=== PATIENT | female | born 1980 | race Hispanic/Latino ===

== ENCOUNTER 2022-06-14 22:59 | Emergency (ER) | payer BC ==
--- OUTSIDE RECORDS SUMMARY | 2022-06-14 23:03 | XMS REPORT | Continuity of Care Document ---
:1980 Author Organization [facility] t Address [address] [place] [address] Care Team Providers Name Role Phone Jennifer Aguilar Attending Clinician Unavailable [place] Attending Clinician Unavailable Jennifer Aguilar Admitting Clinician Unavailable [place] Admitting Clinician Unavailable Payers Payer Name Policy Type Policy Number Effective Date Expiration Date S fred[place] [id number] 2019 00:00:00 [place] Problems This patient has no known problems. Allergies, Adverse Reactions, Alerts Allergy Allergy Status Severity Reaction(s) Onset Inactive Treating Comm ents Source Name Type Date Date Clinician levoflox DA Active SV 2019-0 [facility] [place] levoflox DA Active SV LIP 2019-0 [facility], 9-30 [facility] [place] Medications This patient has no known medications. Procedures Procedure Date / Time Performed Performing Clinician José emery [id number] 2020-08-30 00:00:00 [facility] [id number] 2020-08-30 00:00:00 [facility] [id number] 2020-08-30 00:00:00 LEESH.01 [facility] [id number] 2020-08-30 00:00:00 LEESH.01 [facility] [id number] 2020-08-29 00:00:00 SMIIV [facility] [id number] 2020-08-29 00:00:00 SMIIV [facility] Encounters Start End Encounter Admission Attending Care Care Encounter Source Date/Time Date/Time Type Type Clinicians Facility Department ID 2021-03-30 Outpatient [facility] [id number] [facility] 19:02:18 [id number] [facility] 2020-09-02 Inpatient [facility] [id number] [facility] 07:24:29 er, Jennifer 97 [facility] [place] 2020-07-05 Inpatient [facility] DIAB [id number] [facility] 06:39:00 er, Jennifer 11 [facility] [place] 2020-03-16 Inpatient [facility] STEVEN [id number] [facility] 14:45:00 90 [facility] [place] 2020-10-10 2020-10-10 Outpatient [facility]_ PRIV PRIV [id number] [facility] 09:44:00 09:44:00 Sonu [id number] [facility] 2020-10-09 2020-10-09 Outpatient [facility]_ PRIV PRIV [id number] [facility] 01:08:00 01:08:00 Sonu [id number] [facility] 2020-10-07 2020-10-07 Outpatient [facility]_ PRIV PRIV [id number] [facility] 03:47:00 03:47:[id number] [facility] Results Test Description Test Time Test Comments Results Result Comments Source HGB HCT 2020-08-31 09:33:00 Test Item Value Reference Range Interpretation Comme nts HEMOGLOBIN (test code = HGB) 8.9 g/dL 10.1-13.8 L HEMATOCRIT (test code = HCT) 26.7 % 32.5-41.8 L HGB [id number] 14:06:00 Test Item Value Reference Range Interpretation Comments HEMOGLOBIN (test code = HGB) 9.3 g/dL 10.1-13.8 L HEMATOCRIT (test code = HCT) 28.1 % 32.5-41.8 L AG HEPATITIS B [id number] 12:00:00 Test Item Value Reference Range Interpretation Comments AG HEPATITIS B SURFACE (test code NONREACTIVE NONREACTIVE = HBSAG) IS CONSENT FORM SIGNED FOR HIV TESTING? YAB HEPATITIS C [id number] 12:00:00 Test Item Value Reference Range Interpretation Comments AB HEPATITIS C (test code = NONREACTIVE NONREACTIVE HCVAB) SIGNAL TO CUTOFF (test code = 0.02 <0.80 N CUTOFF) IS CONSENT FORM SIGNED FOR HIV TESTING? YAB [id number] 12:00:00 Test Item Value Reference Range Interpretation Comments AB TREPONEMA (test code = TREPAB) NONREACTIVE NONREACTIVE IS CONSENT FORM SIGNED FOR HIV TESTING? YAB HIV 1 12:00:00 Test Item Value Reference Range Interpretation Comments AB HIV 1 2 (test NONREACTIVE NONREACTIVE [facility] = [id number]) 4th Gen HIV Ag/Ab Combo Screen IS CONSENT FORM SIGNED FOR HIV TESTING? YAG HEPATITIS B [id number] 11:59:00 Test Item Value Reference Range Interpretation Comments AG HEPATITIS B SURFACE (test code NONREACTIVE NONREACTIVE = HBSAG) IS CONSENT FORM SIGNED FOR HIV TESTING? YAB HEPATITIS C [id number] 11:59:00 Test Item Value Reference Range Interpretation Comments AB HEPATITIS C (test code = NONREACTIVE NONREACTIVE HCVAB) SIGNAL TO CUTOFF (test code = 0.02 <0.80 N CUTOFF) IS CONSENT FORM SIGNED FOR HIV TESTING? YAB [id number] 11:59:00 Test Item Value Reference Range Interpretation Comments AB TREPONEMA (test code = TREPAB) NONREACTIVE NONREACTIVE IS CONSENT FORM SIGNED FOR HIV TESTING? YAB HIV 1 11:59:00 Test Item Value Reference Range Interpretation Comments AB HIV 1 2 (test code = [id number]) NONREACTIVE IS CONSENT FORM SIGNED FOR HIV TESTING? YAG HEPATITIS B [id number] 11:32:00 Test Item Value Reference Range Interpretation Comments AG HEPATITIS B SURFACE (test code NONREACTIVE NONREACTIVE = HBSAG) IS CONSENT FORM SIGNED FOR HIV TESTING? YAB HEPATITIS C [id number] 11:32:00 Test Item Value Reference Range Interpretation Comments AB HEPATITIS C (test code = HCVAB) NONREACTIVE SIGNAL TO CUTOFF (test code = CUTOFF) <0.80 IS CONSENT FORM SIGNED FOR HIV TESTING? YAB [id number] 11:32:00 Test Item Value Reference Range Interpretation Comments AB TREPONEMA (test code = TREPAB) NONREACTIVE NONREACTIVE IS CONSENT FORM SIGNED FOR HIV TESTING? YAB HIV 1 11:32:00 Test Item Value Reference Range Interpretation Comments AB HIV 1 2 (test code = [id number]) NONREACTIVE IS CONSENT FORM SIGNED FOR HIV TESTING? YAG HEPATITIS B [id number] 11:31:00 Test Item Value Reference Range Interpretation Comments AG HEPATITIS B SURFACE (test code = NONREACTIVE HBSAG) IS CONSENT FORM SIGNED FOR HIV TESTING? YAB HEPATITIS C [id number] 11:31:00 Test Item Value Reference Range Interpretation Comments AB HEPATITIS C (test code = HCVAB) NONREACTIVE SIGNAL TO CUTOFF (test code = CUTOFF) <0.80 IS CONSENT FORM SIGNED FOR HIV TESTING? YAB [id number] 11:31:00 Test Item Value Reference Range Interpretation Comments AB TREPONEMA (test code = TREPAB) NONREACTIVE NONREACTIVE IS CONSENT FORM SIGNED FOR HIV TESTING? YAB HIV 1 11:31:00 Test Item Value Reference Range Interpretation Comments AB HIV 1 2 (test code = [id number]) NONREACTIVE IS CONSENT FORM SIGNED FOR HIV TESTING? YCBC W/AUTO [id number] 10:55:00 Test Item Value Reference Range Interpretation Comments WHITE BLOOD CELL (test code = WBC) 8.6 K/mm3 6.5-12.3 N RED BLOOD CELL (test code = RBC) 3.76 M/mm3 3.51-4.69 N HEMOGLOBIN (test code = HGB) 11.4 g/dL 10.1-13.8 N HEMATOCRIT (test code = HCT) 34.1 % 32.5-41.8 N MEAN CELL VOLUME (test code = MCV) 90.7 fL 84.6-96.6 N MEAN CELL HGB (test code = MCH) 30.3 pg 27.3-33.9 N MEAN CELL HGB CONCETRATION (test 33.4 gm/dL 32.0-34.2 N code = MCHC) RED CELL DISTRIBUTION WIDTH (test 13.2 % 12.2-16.3 N code = RDW) PLATELET COUNT (test code = PLT) 228 K/mm3 134-363 N MEAN PLATELET VOLUME (test code = 10.4 fL 9.2-12.7 N MPV) NEUTROPHIL % (test code = NT%) 65.1 % 57.9-77.3 N LYMPHOCYTE % (test code = LY%) 26.3 % 14.5-29.7 N MONOCYTE % (test code = MO%) 5.7 % 3.6-10.2 N EOSINOPHIL % (test code = EO%) 1.6 % 0.0-3.0 N BASOPHIL % (test code = BA%) 0.7 % 0.1-0.9 N NEUTROPHIL # (test code = NT#) 5.6 K/mm3 LYMPHOCYTE # (test code = LY#) 2.3 K/mm3 MONOCYTE # (test code = MO#) 0.5 K/mm3 EOSINOPHIL # (test code = EO#) 0.14 K/mm3 BASOPHIL # (test code = BA#) 0.1 K/mm3 RBC MORPHOLOGY REQUIRED (test code NORMAL NORMAL = RBCM) PLATELET MORPHOLOGY REQUIRED (test NORMAL NORMAL code = PLTMR) COVID 19 Asymptomatic IH [id number] 18:49:00 Test Item Value Reference Range Interpretation Comments COVID 19 NEGATIVE NEGATIVE This test has b een Asymptomatic IH AG authorize d only for the (test code = detection ofpro teins from COVNONPUIAG) SARS-CoV-2, not for any other viruses orpathogens. Ne gative results should be treated as presumptive andconfirmed wi th a molecular assay , if necessary for patientmanageme nt. Negative result s do not rule out COVID- 19 andshould not b e used as the sole basis for treatment orpat ient management deci sions, including infec tion controldecision s. Negative result s should be considered i n thecontext of a patient's recent exposure s, history and thepresence of clinical signs and symptoms consis tent withCOVID-19. T his test has not been FD A cleared or approved; th e test hasbeen authori zed by FDA under an Emerge ncy Use Authorization(E UA) for use by laborato michael certified under the CLIA thatmeet the re quirements to perform mode rate, high or waivedcomple xity tests. This ashley t is authorized for use at thePoint of Car e (POC), i.e., in patien t care settingsoperati ng under a CLIA Certificat e of Waiver, Certifi rosmery ofCompliance, o r Certificate of Accreditation. This test is only authori zed for the duration of thedeclaration that circumstances e xist justifying theauthorizatio n of emergency use o f in vitro diagnostic test sfor detection and/o r diagnosis of CO VID-19 under Vzaylzl80 4(b)(1) of the Act, 21 U.S .C. 360bbb-3(b)(1), unless theauthorizatio n is terminated or r evoked sooner. - US [id number] 17:30:00 Patient Name: ELLIOTT LIGHT Unit No: [id number] EXAMS: CPT CODE: [id number] [place] LTD [id number] PROCEDURE: LIMITED ULTRASOUND INDICATION: 15 weeks with pelvic pain and low back pain. COMPARISON: None. TRANSABDOMINAL SCAN: Single live intrauterine is identified currently in cephalic position with heart tones of 159 bpm. Posterior grade 1 placenta is seen without evidence for previa. Cervix measures 3.5 cm in length. Maternal right ovary appears normal measuring 3.9 x 2.1 x 3.8 cm with vascular flow documented. The left ovary is not visualized. No adnexal mass visualized. No free pelvic fluid. TRANSVAGINAL SCAN: Not performed. IMPRESSION: Single viable intrauterine . SL: SG-H at 1730 Reported and signed by: Quentin Henley MD CC: Antonio Mcduffie MD Technologist: Farzaneh Desir RDMS Probe: Trnscrbd D/ (1730) [email or web address] Orig Print D/T: S: 03/16/2020 (1733) [facility] NAME: DAVI LIGHTEY Radiology Department PHYS: Antonio Franco [address] : 1980 AGE: 39 SEX: F [place], [place] [address] LOC: [facility] PHONE #: [phone] EXAM DATE: 03/16/2020 STATUS: REG ER FAX #: [phone] RAD NO: Page 1 Signed ReportPatient Name: ELLIOTT LIGHT Unit No: [id number] EXAMS: CPT CODE: [id number] LTD [id number] (Continued) [facility] NAME: ELLIOTT LIGHT Radiology Department PHYS: Antonio Jj [address] : 1980 AGE: 39 SEX: F [place], [place] [address] LOC: [facility] PHONE #: [phone] EXAM DATE: 03/16/2020 STATUS: REG ER FAX #: [phone] RAD NO: Page 2 Signed ReportUA RFLX MICR CULT IF [id number] 15:37:00 Test Item Value Reference Range Interpretation Comments UA COLOR (test code = COLU) YELLOW YELLOW UA APPEARANCE (test code = Slightly-Cloudy CLEAR APPU) UA GLUCOSE DIPSTICK (test NEGATIVE NEG code = DGLUU) UA BILIRUBIN DIPSTICK (test NEGATIVE NEG code = BILU) UA KETONE DIPSTICK (test code NEGATIVE NEG = KETU) UA SPECIFIC GRAVITY (test 1.030 1.001-1.035 N code = SGU) UA BLOOD DIPSTICK (test code NEG NEG = JERONIMO) UA PH DIPSTICK (test code = 6.0 5-9 HOANG) UA PROTEIN DIPSTICK (test NEGATIVE NEG code = PROU) UA UROBILINIOGEN DIPSTICK 2.0 mg/dL NEG (test code = URO) UA NITRITE DIPSTICK (test NEG NEG code = KYLEIGH) UA LEUKOCYTE ESTERASE 1+ NEG A DIPSTICK (test code = LEUU) UA WBC (test code = WBCU) 6-10 #/hpf NONE SEEN A UA RBC (test code = RBCU) 0-2 #/hpf NONE SEEN UA EPITHELIAL CELLS (test MODERATE #/HPF RARE-FEW A code = EPIU) UA BACTERIA (test code = RARE /HPF RARE-FEW BACU) UA CALCIUM OXALATE CRYSTALS 3-5 #/LPF (test code = CAOXU) UA MUCUS (test code = MUCU) 2+ NONE SEEN Indication for culture: Suprapubic PainSpecimen Description: CLEAN CATCH
[2022-06-14] MEDS ORDERED: HYDROCODONE/APAP 10/325 TAB ONE (23:56)
[2022-06-15 00:35] LABS: Urine Blood Negative (Negative); Urine Glucose Negative (Negative); Urine Protein Negative (Negative); Urine Specific Gravity 1.025 (1.005-1.030); Urine pH 5.5 (5.0-7.0)
[2022-06-15 00:50] LABS: Urine Specific Gravity/Preg 1.025 (1.005-1.030)
--- NOTE | 2022-06-15 01:48 | ER ---
Nurse's Notes [facility] Name: Shelly Bassett Age: 42 yrs Sex: Female : 1980 Arrival Date: 06/14/2022 Time: 23:06 Bed 4 Private MD: Diagnosis: Unspecified injury of head, initial encounter;Gluteal hematoma Presentation: 06/14 23:31 Chief complaint: Patient states: C/o left gluteal, left lower back, and left elbow pain ll3 after slipping down 5 stairs, pt said the steps were wet because it was raining, large hematoma noted to left gluteus, states hit back of head, denies LOC, does not take any blood thinners at home, c/o stiff neck. Coronavirus screen: Vaccine status: Patient reports being unvaccinated. At this time, the client does not indicate any symptoms associated with coronavirus-19. Ebola Screen: No symptoms or risks identified at this time. Initial Sepsis Screen: Does the patient meet any 2 criteria? No. Patient's initial sepsis screen is negative. Does the patient have a suspected source of infection? No. Patient's initial sepsis screen is negative. Risk Assessment: Do you want to hurt yourself or someone else? Patient reports no desire to harm self or others. Onset of symptoms was June 14, 2022. 23:31 Method Of Arrival: Ambulatory ll3 23:31 Acuity: CARLEE 3 ll3 23:45 Care prior to arrival: None. Mechanism of Injury: Fall down 5 steps. Trauma event as6 details: Injury occurred in the [facility], Injury occurred: at home. Injury occurred: June 14, 2022. 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 - Social history:: Smoking status: Patient denies any tobacco usage or history of. - Immunization history: Last tetanus immunization: unknown. Screenin:27 [facility] ED Fall Risk Assessment (Adult) History of falling in the last 3 months, ha1 including since admission Yes- single mechanical fall (1 pt) Confusion or Disorientation No (0 pts) Intoxicated or Sedated No (0 pts) Impaired Gait No (0 pts) Mobility Assist Device Used No (0 pt) Altered Elimination No (0 pt) Score/Fall Risk Level 0 - 2 = Low Risk Oriented to surroundings, Maintained a safe environment, Educated pt \T\ family on fall prevention, incl call for assistance when getting out of bed, Hourly rounding (assess needs \T\ fall precautionary measures) done. 06/15 00:04 Abuse screen: Denies threats or abuse. Denies injuries from another. Nutritional ha1 screening: No deficits noted. Tuberculosis screening: No symptoms or risk factors identified. Primary Survey: 06/14 23:17 NO uncontrolled hemorrhage observed. ha1 23:17 A: The client is alert. Breathing/Chest: Spontaneous respiratory effort, equal ha1 unlabored respirations, breath sounds clear bilaterally, regular pattern, symmetrical chest rise and fall. Circulation: No external hemorrhage present. Regular and strong central pulse, skin warm/dry/normal color. Disability Pupils are equal, round, reactive to light and accommodation. Client is alert. Exposure/Environment: All clothing and personal items were removed. Forensic evidence collection is not deemed to be indicated at this time. Items placed in patient belonging bag. Reassessment Breathing: Spontaneous respiratory effort, equal unlabored respirations, breath sounds clear bilaterally, regular pattern with symmetrical chest rise and fall. Respiratory effort Spontaneous Breath sounds Clear Respiratory pattern Regular Chest inspection Symmetrical Circulation: No external hemorrhage noted. Regular and strong central pulse, skin warm/dry/normal color. Disability: Pupils Pupils are equal, round, reactive to light and accomodation. Alert. Assessment: 23:18 General: Appears uncomfortable, Behavior is calm, cooperative. Pain: Complains of pain ha1 in left lower back and left elbow Pain does not radiate. Pain currently is 9 out of 10 on a pain scale. Is continuous. Neuro: Level of Consciousness is awake, alert, obeys commands, Oriented to person, place, time, situation. Cardiovascular: Patient's skin is warm and dry. Respiratory: Airway is patent Trachea midline Respiratory effort is even, unlabored, Respiratory pattern is regular, symmetrical. GI: Abdomen is non-distended, obese. : No signs and/or symptoms were reported regarding the genitourinary system. EENT: No deficits noted. No signs and/or symptoms were reported regarding the EENT system. Derm: Skin is pink, warm \T\ dry. Musculoskeletal: Circulation, motion, and sensation intact. 06/15 00:44 Reassessment: Patient appears in no apparent distress at this time. Patient and/or as6 family updated on plan of care and expected duration. Pain level reassessed. Patient is alert, oriented x 3, equal unlabored respirations, skin warm/dry/pink. Patient states symptoms have improved. Vital Signs: 06/14 23:18 BP 130 / 91; Pulse 80; Resp 18 S; Pulse Ox 100% on R/A; ha1 23:31 BP 143 / 97; Pulse 83; Resp 17; Temp 98.2(O); Pulse Ox 98% on R/A; Weight 103.42 kg ll3 (R); Height 5 ft. 7 in. (170.18 cm); Pain 10/10; 06/15 00:17 BP 132 / 70; Pulse 75; Resp 17 S; Pulse Ox 99% on R/A; ha1 01:15 BP 119 / 66; Pulse 70; Resp 16 S; Pulse Ox 99% on R/A; ha1 06/14 23:31 Body Mass Index 35.71 (103.42 kg, 170.18 cm) ll3 [place] Coma Score: 06/14 23:45 Eye Response: spontaneous(4). Verbal Response: oriented(5). Motor Response: obeys as6 commands(6). Total: 15. Trauma Score (Adult): 23:45 Eye Response: spontaneous(1); Verbal Response: oriented(1); Motor Response: obeys as6 commands(2); Systolic BP: > 89 mm Hg(4); Respiratory Rate: 10 to 29 per min(4); Casey Score: 15; Trauma Score: 12 ED Course: 23:06 Patient arrived in ED. es 23:17 Patient has correct armband on for positive identification. Placed in gown. Bed in low ha1 position. Call light in reach. Side rails up X 1. Adult w/ patient. 23:17 Thermoregulation: warm blanket given to patient. ha1 23:17 Patient maintains SpO2 saturation greater than 95% on room air. ha1 23:21 Tyler Chawla, RN is Primary Nurse. as6 23:23 Caden Forrester PA is PHCP. [facility] 23:23 Higinio Ashby MD is Attending Physician. [facility] 23:38 Triage completed. ll3 23:40 Arm band placed on Patient placed in an exam room, on a stretcher, on pulse oximetry. ll3 06/15 01:04 CT Head C Spine In Process Unspecified. EDMS 01:04 CT Stone Protocol In Process Unspecified. EDMS 02:01 No provider procedures requiring assistance completed. Patient did not have IV access ha1 during this emergency room visit. Administered Medications: 06/14 23:57 Drug: [place] (HYDROcodone-acetaminophen) 10 mg-325 mg 1 tabs Route: PO; ha1 06/15 00:25 Follow up: Response: No adverse reaction; Pain is decreased; RASS: Alert and Calm (0) ha1 Medication: 02:05 VIS not applicable for this client. ha1 Outcome: 06/14 23:27 Patient's length of stay was not longer than 2 hours. ha1 06/15 01:47 Discharge ordered by . [facility] 02:01 Discharged to home ambulatory, with family. ha1 02:01 Condition: stable 02:01 Discharge instructions given to patient, family, Instructed on discharge instructions, follow up and referral plans. medication usage, Demonstrated understanding of instructions, follow-up care, medications, Prescriptions given X 2. 02:06 Patient left the ED. ha1 Signatures: Dispatcher [employer] EDMS Caden Forrester PA PA jmm Salyer, Edna es Slawson, Ashby, RN RN as6 Dimitry Chakraborty RN RN ll3 Susan Lindo RN RN ha1
--- NOTE | 2022-06-15 01:48 | EDPHYS ---
Physician Documentation [facility] Name: Shelly Bassett Age: 42 yrs Sex: Female : 1980 Arrival Date: 06/14/2022 Time: 23:06 Bed 4 Private MD: ED Physician Higinio Ashby HPI: 06/14 23:38 This 42 yrs old Female presents to ER via Ambulatory with complaints of Fall jmm Injury. 23:38 Details of fall: The patient fell from an upright position. 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 - Social history:: Smoking status: Patient denies any tobacco usage or history of. - Immunization history: Last tetanus immunization: unknown. Vital Signs: 23:18 BP 130 / 91; Pulse 80; Resp 18 S; Pulse Ox 100% on R/A; ha1 23:31 BP 143 / 97; Pulse 83; Resp 17; Temp 98.2(O); Pulse Ox 98% on R/A; Weight 103.42 kg ll3 (R); Height 5 ft. 7 in. (170.18 cm); Pain 10/10; 06/15 00:17 BP 132 / 70; Pulse 75; Resp 17 S; Pulse Ox 99% on R/A; ha1 01:15 BP 119 / 66; Pulse 70; Resp 16 S; Pulse Ox 99% on R/A; ha1 06/14 23:31 Body Mass Index 35.71 (103.42 kg, 170.18 cm) ll3 Casey Coma Score: 06/14 23:45 Eye Response: spontaneous(4). Verbal Response: oriented(5). Motor Response: obeys as6 commands(6). Total: 15. Trauma Score (Adult): 23:45 Eye Response: spontaneous(1); Verbal Response: oriented(1); Motor Response: obeys as6 commands(2); Systolic BP: > 89 mm Hg(4); Respiratory Rate: 10 to 29 per min(4); Casey Score: 15; Trauma Score: 12 MDM: 23:28 Patient medically screened. [facility] 06/15 01:45 Data reviewed: vital signs, nurses notes. Counseling: I had a detailed discussion with [facility] the patient and/or guardian regarding: the historical points, exam findings, and any diagnostic results supporting the discharge/admit diagnosis, lab results, radiology results, the need for outpatient follow up, to return to the emergency department if symptoms worsen or persist or if there are any questions or concerns that arise at home. 06/15 00:34 Order name: Urine --Ancillary (enter results); Complete Time: 00:51 wm 06/15 00:35 Order name: Urine Dipstick-Ancillary; Complete Time: 00:37 EDMS 06/14 23:30 Order name: CT Head C Spine [facility] 06/14 23:30 Order name: CT Stone Protocol [facility] Administered Medications: 06/14 23:57 Drug: [place] (HYDROcodone-acetaminophen) 10 mg-325 mg 1 tabs Route: PO; ha1 06/15 00:25 Follow up: Response: No adverse reaction; Pain is decreased; RASS: Alert and Calm (0) ha1 Disposition Summary: 06/15/22 01:47 Discharge Ordered Location: Home [facility] Condition: Stable [facility] Diagnosis - Unspecified injury of head, initial encounter [facility] - Gluteal hematoma [facility] Followup: [facility] - With: Private Physician - When: 2 - 3 days - Reason: Recheck today's complaints, Continuance of care, Re-evaluation by your physician Discharge Instructions: - Discharge Summary Sheet [facility] - Head Injury, Adult [facility] - Hematoma [facility] Forms: - Medication Reconciliation Form [facility] - Thank You Letter [facility] - Antibiotic Education [facility] - Prescription Opioid Use [facility] Prescriptions: - Ultracet 37.5-325 mg Oral Tablet - take 1 tablet by ORAL route every 6 hours - for up to 5 days; do not exceed 8 jmm tablets per day.; 12 tablet; Refills: 0, Product Selection Permitted - orphenadrine citrate 100 mg Oral Tablet Sustained Release - take 1 tablet by ORAL route 2 times per day As needed; 20 tablet; Refills: 0, [facility] Product Selection Permitted Signatures: Dispatcher [employer] EDCaden Goodwin PA PA jmm Loubet, Lynsea RN RN ll3 Susan Lindo, RN RN ha1
[2022-06-15 02:11] VITALS: TEMP 98.2
[2022-06-15 02:12] VITALS: O2SAT 99
[2022-06-15 02:14] VITALS: BP 119/66
--- NOTE | 2022-06-15 15:45 | RAD REPORT ---
EXAM DESCRIPTION: CT - CTHCSPWOC - 06/15/2022 2:41 am CLINICAL HISTORY: The patient is 42 years old and is Female; fall, head injury TECHNIQUE: Axial computed tomography images of the head/brain and cervical spine without intravenous contrast. Sagittal and coronal reformatted images were created and reviewed. This CT exam was pe rformed using one or more of the following dose reduction techniques: automated exposure control, a djustment of the mA and/or kV according to patient size, and/or use of iterative reconstruction techn ique. COMPARISON: No relevant prior studies available. FINDINGS: Brain: Unremarkable. No hemorrhage. No significant white matter disease. No edema. Ventricles: Unremarkable. No ventriculomegaly. Skull: No acute fracture. Sinuses: Sphenoid sinus mucosal thickening. Left maxillary sinus mucosal thickening. Mastoid air cells: Unremarkable as visualized. No mastoid effusion. Vertebrae: Unremarkable. No acute fracture. Normal alignment. Discs/spinal canal/neural foramina: Disc space narrowing with degenerative end plate changes at C6-C7 and C7-T1. Moderate left neural foraminal narrowing at C2-3. Soft tissues: Unremarkable. IMPRESSION: No acute intracranial abnormality. No acute findings in the cervical spine. Electronically signed by: Kuldip Allred MD 06/15/2022 1:23 AM TRIMMER BUFFING WHEEL Due to temporary technical issues with the PACS/Fluency reporting system, reports are being signed by the in house radiologists without review as a courtesy to insure prompt reporting. The interpreting radiologist is fully responsible for the content of the report.
--- NOTE | 2022-06-15 16:41 | RAD REPORT ---
EXAM DESCRIPTION: CT - Stone Protocol - 06/15/2022 2:42 am CLINICAL HISTORY: Fall, low back pain, left hip pain TECHNIQUE: Axial computed tomography images of the abdomen and pelvis without intravenous contrast. Sagittal and coronal reformatted images were created and reviewed. This CT exam was performed usi ng one or more of the following dose reduction techniques: automated exposure control, adjustment o f the mA and/or kV according to patient size, and/or use of iterative reconstruction technique. COMPARISON: No relevant prior studies available. FINDINGS: Lung bases: Unremarkable. No mass. No consolidation. Mediastinum: Small hiatal hernia. ABDOMEN: Liver: Unremarkable. Gallbladder and bile ducts: Tiny gallstones within a contracted gallbladder. No ductal dilation. Pancreas: Unremarkable. No ductal dilation. Spleen: Unremarkable. No splenomegaly. Adrenals: Unremarkable. No mass. Kidneys and ureters: 4.4 cm partially exophytic cyst at the anterior mid pole of the left kidney. No follow-up imaging is necessary. No calculi. No hydronephrosis. Stomach and bowel: Prior gastric sleeve. Moderate stool. No bowel obstruction. No appreciable mucosal thickening. PELVIS: Appendix: Normal caliber appendix. No findings to suggest acute appendicitis. Bladder: Unremarkable. No stones. Reproductive: Unremarkable as visualized. ABDOMEN and PELVIS: Intraperitoneal space: Unremarkable. No free air. No significant fluid collection. Bones/joints: Multilevel spondylosis most pronounced at the lumbosacral junction. 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 No ac sandor fracture. No dislocation. Soft tissues: Small to moderate fat-containing umbilical hernia. Right gluteal subcutaneous hemor rhagic contusion measuring approximately 11.9 x 1.5 x 10.1 cm. Vasculature: Unremarkable. No abdominal aortic aneurysm. Lymph nodes: Unremarkable. No enlarged lymph nodes. IMPRESSION: 1. Right gluteal subcutaneous hemorrhagic contusion measuring approximately 11.9 x 1.5 x 10.1 cm. No acute fracture. 2. Allowing for unenhanced technique, no evidence for hollow or solid organ injury. 3. Other findings as above. Electronically signed by: Ori Augustine MD 06/15/2022 1:28 AM DERRICK MAN Due to temporary technical issues with the PACS/Fluency reporting system, reports are being signed by the in house radiologists without review as a courtesy to insure prompt reporting. The interpreting radiologist is fully responsible for the content of the report.
== END 2022-06-15 02:06 | disposition home or self-care (01) ==
LOC: ER 22:59
DX: S09.90XA Unspecified injury of head, initial encounter (principal); S30.0XXA Contusion of lower back and pelvis, initial encounter; Z88.1 Allergy status to other antibiotic agents
CPT/HCPCS: 70450; 72125; 74176; 76377; 81003; 81025; 99284

== ENCOUNTER 2022-08-06 06:17 | Day surgery (SDC) | payer BC ==
[2022-08-06 07:11] LABS: Potassium 3.9 mmol/L (3.5-5.1)
[2022-08-06 07:23] LABS: Absolute Lymphocytes (CBC) 2.2 K/uL (0.7-4.9); Hematocrit 31.9 % (36.0-45.0); Lymphocytes % 26.9 % (15.3-44.8); MCV 77.7 fL (80-100); MPV 7.3 fL (7.6-11.3); RBC Red Blood Cell Count 4.11 M/uL (3.86-4.86)
[2022-08-06] MEDS ORDERED: NA CHLORIDE 0.9% 1,000 ML ONE (07:31)
[2022-08-06] MEDS ORDERED: CELECOXIB 100 MG CAPSULE ONE (07:46)
[2022-08-06] MEDS ORDERED: ACETAMINOPHEN 500 MG TAB ONE (07:46)
[2022-08-06] MEDS ORDERED: CEFAZOLIN SODIUM 1 GM/VIAL ONE (08:42)
[2022-08-06 08:54] LABS: Urine Specific Gravity/Preg 1.025 (1.005-1.030)
[2022-08-06] MEDS ORDERED: BUPIVACAINE 0.5% PF 10 ML VIAL ONE (09:07)
[2022-08-06] MEDS ORDERED: FENTANYL CITR 100 MCG/2 ML ONE (09:13)
[2022-08-06] MEDS ORDERED: propofoL 200 MG/20 ML VIAL IV ONE (09:14)
[2022-08-06] MEDS ORDERED: MIDAZOLAM HCL 2 MG/2 ML INJ ONE (09:14)
[2022-08-06] MEDS ORDERED: LIDOCAINE 2% MPF 5 ML VIAL ONE (09:15)
[2022-08-06] MEDS ORDERED: ONDANSETRON 4 MG/2 ML VIAL ONE (09:15)
--- NOTE | 2022-08-06 09:50 | P.BOP ---
Preoperative diagnosis: tender left buttock subQ mass /infected hematoma Postoperative diagnosis: same Primary procedure: Wound exploration with drainage infected complex hematoma [id number] Estimated blood loss: minimal, clotted blood remove Specimen: culture Findings: as above Anesthesia: General Drain(s): JADON drain Transferred to: Recovery Room Condition: Good
--- NOTE | 2022-08-06 12:35 | EKG ---
Test Date: 2022-08-06 Test Time: 07:08:01 Senior Network Administrator: YAYA MEASUREMENT RESULTS: Intervals: Rate: 78 RI: 154 QRSD: 74 QT: 376 QTc: 428 [place]: P: 26 RI: 154 QRS: 44 T: 37 INTERPRETIVE STATEMENTS: Normal sinus rhythm with sinus arrhythmia Normal ECG No previous ECG available for comparison Electronically Signed On 08-06-22 12:34:31 PERINATAL INSTRUCTOR by Akshat Zamudio
[2022-08-06 12:43] VITALS: BP 113/73; TEMP 96.9; O2SAT 99
--- NOTE | 2022-08-06 15:04 | OP ---
Date of Procedure: 08/06/2022 Surgeon: Primo Perez MD Preoperative Diagnosis: Tender left buttock subcutaneous mass with infected hematoma. Postoperative Diagnosis: Tender left buttock subcutaneous mass with infected hematoma. Procedure: Wound exploration with drainage of infected complex hematoma, 15 x 15 x 4 cm. Estimated Blood Loss: Minimal. Several blood clots removed. There is also yellow discoloration wit h blood fluid mixed. Specimen: Culture. Findings: Patient has this complex hematoma. We did an incision on that area. We explored the cavi ty and removed the loculations with the help of the saline. No active bleeding at this moment. Due to the nature of the fluid, we cultured the area to looking for and trying to identify bacteria. Are a was irrigated. At this moment, I made a counter incision at the bottom of this area and put a JADON d rain to that region to allow us to drain the area for the next several days, and the local anesthesia was applied to both places and then the skin was approximated with 3-0 chromic. The JADON drain was se cured in place with the 3-0 nylon. Patient tolerated the procedure well. Patient sent to Recovery i n stable condition. Sponge count and instrument counts were correct. HARSHAL/MODL Voice ID: [id number] Report ID: [id number]
--- NOTE | 2022-08-06 15:07 | DS ---
Date of Discharge: 08/06/2022 Diagnosis: Tender left buttock infected complex hematoma. Procedure: Wound exploration with drainage of infected complex hematoma 15 x 15 x 4 cm. Disposition: Home. Drain: JADON drain. Discharge Instructions: Instructions were given to the patient's to record the output every 24 hours. Keep area dry for 2 days and then may take a shower, but only running water. HARSHAL/TEE Voice ID: [id number] Report ID: [id number]
--- NOTE | 2022-08-06 19:59 | RAD REPORT ---
EXAM DESCRIPTION: RAD - Chest Pa And Lat (2 Views) - 08/06/2022 6:42 am CLINICAL HISTORY: PREOP COMPARISON: None. FINDINGS: Frontal and lateral radiographic views of the chest. Cardiomediastinal silhouette: Normal size and contour. Lungs: No consolidation, pneumothorax, or pleural effusion. Bones: No acute osseous abnormality. Upper abdomen: No abnormality identified. IMPRESSION: 1. No acute pulmonary process identified. Electronically signed by: Isreal Meneses 08/06/2022 6:56 AM EVENING OR NIGHT NURSE SUPERVISOR Due to temporary technical issues with the PACS/Fluency reporting system, reports are being signed by the in house radiologists without review as a courtesy to insure prompt reporting. The interpreting radiologist is fully responsible for the content of the report.
== END 2022-08-06 12:00 | disposition home or self-care (01) ==
LOC: OR 06:17
PROVIDERS: ATTEND Surgery
PROC: 0H98XZX Drainage of Buttock Skin, External Approach, Diagnostic (ICD-10-PCS; principal; 2022-08-06 09:15)
DX: S30.0XXA Contusion of lower back and pelvis, initial encounter (principal); R22.2 Localized swelling, mass and lump, trunk; L08.9 Local infection of the skin and subcutaneous tissue, unspecified
CPT/HCPCS: 93005; 87070; 85025; 80048; 36415; 87205; 81025; 82947; 87075; 71046; 10140; J2704; J2001; J2250; J3010; J7030; J2405; J0690